=== PATIENT | female | born 1990 | race Two or more races ===

== ENCOUNTER 2024-08-13 10:57 | Emergency (ER) | payer OTHER ==
[~2024-08-13] VITALS: Ht 152.4 cm; Wt 60.3 kg
[2024-08-13 11:54] VITALS: BP 134/88; O2SAT 97
[2024-08-13] MEDS ORDERED: ALLEGRA ALLERG180 MG PO (12:17)
[2024-08-13] MEDS ORDERED: NITROFURANTOIN100 MG PO (12:17)
[2024-08-13] MEDS ORDERED: CETIRIZINE HCL 5 MG/5 ML ML PO ONE (12:30)
[2024-08-13] MEDS ORDERED: METHYLPREDNISOLONE SOD SUCC 125 MG VIAL IV ONE (12:30)
[2024-08-13] MEDS ORDERED: METHYLPREDNISOLONE SOD SUCC 125 MG VIAL ONE (12:32)
[2024-08-13] MEDS ORDERED: CETIRIZINE HCL 5MG/5ML BLIST.PACK PO ONE (12:32)
== END 2024-08-13 12:49 | disposition home or self-care (01) ==
LOC: ER 11:00
DX: L50.0 Allergic urticaria (principal); Z88.6 Allergy status to analgesic agent; Z88.2 Allergy status to sulfonamides